=== PATIENT | male | born 1935 | race African-American/Black ===

== ENCOUNTER 2017-02-04 12:23 | Inpatient (IN) | payer MEDICARE, BC ==
[~2017-02-04 12:23] MED LIST: Sodium Chloride 0.9% 1,000 ML BAG ONE; Sodium Chloride 0.9% 100 ML BAG ONE
[2017-02-04 13:26] LABS: #Eosinphils 0.2 thou/uL (0.0-0.7); #Lymphocytes 1.3 thou/uL (1.20-3.40); #Monocytes 0.3 thou/uL (0.11-0.59); #Neutrophils 1.9 thou/uL (1.40-6.50); %Basophils 0.9 % (0.0-1.0); %Lymphocytes 34.8 % (21.0-51.0); %Monocytes 8.1 % (0.0-10.0); %Neutrophils 51.3 % (42.0-75.0); Hemoglobin 11.2 g/dL (14.0-18.0); Mean Corpuscular HGB CONC 31.5 g/dL (32.0-36.0); Mean Corpuscular Hemoglobin 28.6 pg (27.0-31.0); Mean Corpuscular Volume 90.6 fl (80.0-94.0); Mean Platelet Volume 8.3 fL (7.4-10.4); Platelet Count 171 thou/uL (130-400); RBC Distribution Width 13.7 % (11.5-14.5); Red Blood Cell (RBC) Count 3.93 mill/uL (4.70-6.10); White Blood Cell (WBC) Count 3.8 thou/uL (4.8-10.8)
--- NOTE | 2017-02-04 13:33 | RAD ---
SUPINE PORTABLE CHEST ONE VIEW: History: 81-year-old male with altered mental status. Comparison: 02-22-16 FINDINGS: Borderline cardiomegaly. Atherosclerosis of the aorta with ectasia. No confluent pneumonia, overt ed david or pleural effusion. Diffuse bony demineralization. IMPRESSION: Borderline cardiomegaly. Atherosclerosis of the aorta with ectasia. No other acute process. POS: GIANNI
[2017-02-04 13:46] LABS: Acetaminophen Less than 6.0 mcg/mL (10.0-30.0); Alcohol Less than 10 mg/dL (Less than 10); Anion Gap 12 mmol/L (10-20); BUN (Urea Nitrogen) 16 mg/dL (8.4-25.7); CKMB 1.1 ng/mL (0-6.6); Calc. Creatinine Clearance 0 mL/min (70-130); Calcium 8.8 mg/dL (7.8-10.44); Carbon Dioxide 30 mmol/L (23-31); Chloride 107 mmol/L (98-107); Estimated GFR-MDRD Greater than 90; Glucose 81 mg/dL (83-110); Potassium 3.7 mmol/L (3.5-5.1); Salicylate Less than 8.0 mg/dL (15.0-30.0); Sodium 145 mmol/L (136-145)
[2017-02-04 14:00] LABS: Troponin I Less than 0.010 ng/mL (< 0.028)
[2017-02-04] MEDS ORDERED: Dextrose 50% Abboject 50 ML SYRINGE ONE (14:19)
[2017-02-04] MEDS ORDERED: cefTRIAXone\\ROCEPHIN 1 GM VIAL ONE (15:08)
[2017-02-04 15:13] LABS: Bilirubin Negative (Negative); Blood, Urine Negative (Negative); Clarity Cloudy (Clear); Glucose, Urine (Dipstick) Negative (Negative); Leukocyte Negative (Negative); Nitrite Negative (Negative); Protein, Urine (Dipstick) 30 mg/dL (Neg-Trace); pH, Urine 6.5 (5.0-9.0)
[2017-02-04 15:14] LABS: Bacteria/HPF 4+ HPF (None Seen); Crystals/HPF 2+ AMORPH URATES HPF (Negative); RBC/HPF 0-3 HPF (0-3); Squamous Epithelial 0-3 HPF (0-3); WBC/HPF 0-3 HPF (0-3)
[2017-02-04 15:15] LABS: Amphetamine Not Detected (NotDetected); Barbiturates Screen Not Detected (NotDetected); Benzodiazepine Screen Detected (NotDetected); Cocaine Metabolite Screen Not Detected (NotDetected); Methadone Not Detected (NotDetected); Methamphetamine Not Detected (NotDetected); Opiate Screen Not Detected (NotDetected); Oxycodone Screen Not Detected (NotDetected); Phencyclidine (PCP) Not Detected (NotDetected); THC/Cannabinoid Screen Not Detected (NotDetected); Tricyclic Screen Not Detected (NotDetected)
[2017-02-04 15:16] LABS: Medtox Control Line Valid? VALID (VALID)
[2017-02-04 17:07] VITALS: BMI 28.4
[2017-02-04] MEDS ORDERED: Ondansetron HCl/PF 4 MG/2 ML Vial SLOW IVP PRN (18:09)
[2017-02-04] MEDS ORDERED: Acetaminophen 650 MG Suppository PR PRN (18:09)
[2017-02-04] MEDS ORDERED: Enoxaparin Sodium 30 MG/0.3 ML SYRINGE SC SCH ×2 (18:09→20:00)
[2017-02-04] MEDS: Sodium Chloride 0.9% 1,000 ML IV SCH (18:36)
[2017-02-05] MEDS: Sodium Chloride 0.9% 1,000 ML IV SCH ×2 (03:22→13:40)
[2017-02-05 05:37] LABS: #Eosinphils 0.2 thou/uL (0.0-0.7); #Lymphocytes 1.4 thou/uL (1.20-3.40); #Monocytes 0.5 thou/uL (0.11-0.59); #Neutrophils 2.5 thou/uL (1.40-6.50); %Basophils 0.9 % (0.0-1.0); %Eosinophils 4.4 % (0.0-10.0); %Lymphocytes 30.8 % (21.0-51.0); %Monocytes 10.7 % (0.0-10.0); %Neutrophils 53.2 % (42.0-75.0); Hemoglobin 10.5 g/dL (14.0-18.0); Mean Corpuscular HGB CONC 32.4 g/dL (32.0-36.0); Mean Corpuscular Hemoglobin 28.9 pg (27.0-31.0); Mean Corpuscular Volume 89.4 fl (80.0-94.0); Platelet Count 175 thou/uL (130-400); RBC Distribution Width 13.7 % (11.5-14.5); Red Blood Cell (RBC) Count 3.63 mill/uL (4.70-6.10); White Blood Cell (WBC) Count 4.6 thou/uL (4.8-10.8)
[2017-02-05 05:46] LABS: Anion Gap 10 mmol/L (10-20); BUN (Urea Nitrogen) 14 mg/dL (8.4-25.7); Calc. Creatinine Clearance 75 mL/min (70-130); Calcium 8.3 mg/dL (7.8-10.44); Carbon Dioxide 28 mmol/L (23-31); Chloride 111 mmol/L (98-107); Estimated GFR-MDRD 90; Glucose 73 mg/dL (83-110)
[2017-02-05 06:01] LABS: Potassium 3.5 mmol/L (3.5-5.1); Sodium 145 mmol/L (136-145)
[2017-02-05] MEDS: levETIRAcetam 500 MG TAB PO SCH ×3 (08:46→17:17)
[2017-02-05] MEDS: Ferrous Sulfate 325 MG TAB PO SCH ×2 (08:46→11:37)
[2017-02-05] MEDS: Enoxaparin Sodium 30 MG/0.3 ML SYRINGE SC SCH ×2 (08:47→09:39)
[2017-02-05] MEDS: Pantoprazole 40 MG VIAL IVP SCH ×2 (09:06→09:39)
[2017-02-05] MEDS: Amlodipine 5 MG TAB PO SCH ×2 (09:07→11:40)
--- NOTE | 2017-02-05 10:11 | HP ---
REASON FOR ADMISSION: Altered mental status. HISTORY OF PRESENT ILLNESS: Mr. Nicholson is an 81-year-old male with multiple chronic medical conditions including Alzheimer dementia with behavioral disturbances and schizoaffective disorder, disruptive mood dysregulation disorder, anxiety, chronic insomnia and elopement risk. The patient was recently admitted to [facility] as the patient has been having increased behavioral disturbances and now with elopement risk, in his previous long-term facility in [place]. The patient remains confused, walking around on his own with intermittent anxiety and agitation, but overall behaviors is well controlled in the secure unit of [facility]. The day prior to admission, the patient was noted to be generally weak, as stays in bed all the time with no significant symptoms reported. He was observed in the skilled nursing facility. Overnight course was unremarkable. On the day of admission, the patient was noted to be very lethargic, almost unresponsive, thus, he was transferred to [facility] for further evaluation. In the ER, the patient was reported to be very lethargic with initial vital signs of 158/88, pulse 55, respirations 13, temperature 95.3 rectal, O2 saturation 98% at room air. Further exams, the patient's laboratory showed WBC 3.8, hemoglobin 11.2, hematocrit 35.6 with significant bacteriuria without pyuria. Toxicology showed benzodiazepines high with less than 10 plasma alcohol , less than 6 acetaminophen and less than 8 salicylates. The patient was admitted for possible urosepsis. He was started on empiric IV antibiotic treatment including vancomycin IV, ceftriaxone IV. He was also started on aggressive IV hydration infusion. His temperature increased to 96.7 with Marcia Hugger prior to transfer to the medical floor . The patient was subsequently admitted to [facility] for inpatient management of probable urosepsis. There was also a suspected oversedation form his multiple psych medications . per skilled nursing staff.Patient had not been taking his psych medications consistently from the other intermediate facility where he was from. He has been taking his medications lately from [facility]. On examination on the floor, the patient was seen lying comfortably in bed, asleep, easily arousable with verbal stimulus and tactile stimulus. He would not open his eyes, but he answered simple questions with some appropriateness. He denies any pain or any concerns at this point. He does not want to eat at this point as well. 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 PAST SURGICAL HISTORY: Unknown. FAMILY HISTORY: Noncontributory. SOCIAL HISTORY: Per records, patient is nonsmoker, no illicit drug use. No alcohol use. ALLERGIES: LISINOPRIL and PENICILLIN. PREVIOUS HOSPITALIZATION: 02/22/2016 to 02/27/2016 - Altered mental status with pneumonia in [facility] under Dr. Salomon. PREVIOUS PRIMARY CARE PHYSICIAN: Dr. Salomon. REVIEW OF SYSTEMS: Limited secondary to dementia. MEDICATIONS AT HOME: 1. Aspirin 81 mg p.o. daily. 2. Depakote sprinkles 125 mg 4 capsules b.i.d. 3. Ferrous sulfate 325 mg b.i.d. 4. Keppra 250 mg p.o. daily. 5. Lipitor 20 mg p.o. at bedtime. 6. Norvasc 5 mg p.o. daily. 7. Protonix 40 mg p.o. b.i.d. 8. Temazepam 15 mg p.o. at bedtime. 9. Risperdal Consta 25 mg suspension 1 mL intramuscular monthly. 10. Toprol-XL 50 mg daily. 11. Trazodone 100 mg p.o. at bedtime. 12. Clonidine 0.1 mg q.6h. p.r.n. for elevated blood pressure. 13. Acetaminophen 325 mg 2 capsules q.4h. p.r.n. PHYSICAL EXAMINATION: VITAL SIGNS: Blood pressure 159/77, temperature 97.2, pulse 59, respirations 20 , O2 sats 97% at room air, weight 198 pounds, height 5 feet 10. GENERAL: The patient is lying comfortably in bed with eyes closed. He answers simple questions. He knows his name only. Limited conversation. Comfortably resting in bed, no signs of agony, not in distress. HEENT: Normocephalic, atraumatic. PERRL, EOM - not assessed as patient was uncooperative. Nonicteric sclerae. Oral mucosa is dry, Multiple absent teeth. NECK: Supple. No LAD, no JVD, no bruit. CHEST: Normal excursion, clear to auscultation bilaterally. CARDIAC: Mildly bradycardic. Normal S1 and S2. No murmurs. ABDOMEN: Flat, soft, normoactive bowel sounds, nondistended, nontender. No rebound, no guarding. Negative CVA tenderness bilaterally. EXTREMITIES: No edema, no cyanosis. Moves all extremities symmetrically. NEUROLOGIC: Nonfocal. No tremors, no tics. Spontaneous speech. No motor deficits, neurological deficits. The rest of the neuro exam was not obtained secondary to current cognitive status. SKIN: Intact. No rashes, no lesions. TESTS: Chest x-ray, borderline cardiomegaly, atherosclerosis of the aorta with ectasia. No other acute process. EKG as read by ER physician from the ER showed normal sinus rhythm with 54 beats per minute, no ectopics, no previous EKG available for comparison, conduction with first degree AV block, T waves normal, axis left anterior descending. ASSESSMENT AND PLAN: 1. Altered mental status, multifactorial. 2. Probable urosepsis. 3. Probable drug oversedation with psych medications. 4. Alzheimer's dementia with behavioral disorders. 5. Hypertension. 6. Schizoaffective disorder. 7. Disrupted dysregulation disorder. 8. Anxiety. 9. Anemia. 10. Chronic insomnia. 11. Dyslipidemia. CODE STATUS: Do not resuscitate. PLAN: 1. The patient is an 81-year-old male with multiple chronic medical conditions, a long-term resident of skilled nursing with both advanced dementia and psych issues. He is on multiple psych medications.He was admitted for altered mental status,unknown cause. 2. We will continue empiric IV antibiotic treatment pending cultures. 3. We will continue aggressive IV hydration as tolerated. Serial lab works. 4. We will hold off all psych medications at this point. We will continue home medications as modified per list. 5. NPO, until fully awake. 6. Gastrointestinal prophylaxis with PPI. DVT prophylaxis with Lovenox. 7.. Further recommendations depending on the hospital course. 7. Code status: The patient has outpatient DNR, which was confirmed and signed by the [facility]. No family is present at this point. DEMARCO
[2017-02-05 10:45] LABS: Valproic Acid (Depakene) 30.8 ug/mL (50.0-100.0)
[2017-02-05] MEDS: cefTRIAXone\\ROCEPHIN 1 GM in Sodium Chloride 0.9% 100 ML IVPB SCH (14:48)
[2017-02-05] MEDS: Dextrose 5 %-0.45 % NaCl 1,000 ML IV SCH (17:32)
[2017-02-05] MEDS ORDERED: traZODone HCl 50 MG TAB PO PRN (21:22)
[2017-02-05] MEDS ORDERED: Amlodipine 5 MG TAB PO SCH (21:30)
[2017-02-05] MEDS: ALPRAZolam 0.5 MG TAB PO PRN (21:35)
[2017-02-05] MEDS: Atorvastatin Calcium 10 MG TAB PO SCH (21:35)
[2017-02-05] MEDS: Nystatin Ointment 15 GM TUBE TOP SCH (21:36)
[2017-02-06] MEDS: Ferrous Sulfate 325 MG TAB PO SCH ×3 (00:46→17:12)
[2017-02-06] MEDS: Dextrose 5 %-0.45 % NaCl 1,000 ML IV SCH ×2 (00:58→13:22)
[2017-02-06] MEDS: Enoxaparin Sodium 30 MG/0.3 ML SYRINGE SC SCH (08:29)
[2017-02-06] MEDS: Amlodipine 5 MG TAB PO SCH (08:29)
[2017-02-06] MEDS: levETIRAcetam 500 MG TAB PO SCH (08:30)
[2017-02-06] MEDS: Pantoprazole 40 MG VIAL IVP SCH (08:31)
[2017-02-06] MEDS: Nystatin Ointment 15 GM TUBE TOP SCH ×2 (09:00→21:17)
[2017-02-06] MEDS: cefTRIAXone\\ROCEPHIN 1 GM in Sodium Chloride 0.9% 100 ML IVPB SCH (14:15)
[2017-02-06] MEDS: ALPRAZolam 0.5 MG TAB PO PRN (15:13)
[2017-02-06] MEDS: Atorvastatin Calcium 10 MG TAB PO SCH (21:18)
[2017-02-07] MEDS: Enoxaparin Sodium 30 MG/0.3 ML SYRINGE SC SCH (07:54)
[2017-02-07] MEDS: Pantoprazole 40 MG VIAL IVP SCH (07:55)
[2017-02-07] MEDS: levETIRAcetam 500 MG TAB PO SCH (08:00)
[2017-02-07] MEDS: Ferrous Sulfate 325 MG TAB PO SCH (08:00)
[2017-02-07] MEDS: Amlodipine 5 MG TAB PO SCH (08:01)
[2017-02-07 11:56] VITALS: BP 139/61; TEMP 99.3
[2017-02-07] MEDS: Nystatin Ointment 15 GM TUBE TOP SCH (13:07)
[2017-02-07] MEDS: ALPRAZolam 0.5 MG TAB PO PRN (13:08)
--- NOTE | 2017-02-16 22:16 | PQF ---
Clayton Nicholson IMELDA CHAN MD [id number] CLINICAL DOCUMENTATION CLARIFICATION FORM: POST DISCHARGE Addendum to original discharge summary date: 02/12/17 Late entry note date: 02/17/17 DATE: 02/16/17 ATTN: Please exercise your independent, professional judgment in responding to the clarification form. Clinical indicators are provided on the bottom of this form for your review Urosepsis is documented throughout the chart. Please clarify the final diagnosis after study that this patient was admitted for: Please check appropriate box(s): [ ] UTI please specify if due to or related to (as applicable): [ ] Indwelling catheter [ ] Self-catheterization [ ] Suprapubic catheter [/ ] Unable to determine etiology UTI Site: [ ] Kidney [ ] Ureter [ ] Bladder [ ] Urethra [/] Unable to determine Specify Organism (if known):_Aerococcus urinae__ [ ] Unknown organism [ ] Sepsis [ ] Contaminated urine specimen without UTI [ ] Other diagnosis [ ] Unable to determine In addition, please specify: Present on Admission (POA): [X ] Yes [ ] No [ ] Unable to determine For continuity of documentation, please document condition throughout progress notes and discharge summary. Thank You. CLINICAL INDICATORS - SIGNS / SYMPTOMS / LABS Positive urinalysis- Hematuria Fever-/ Documentation: UTI- RISK FACTORS History of neurogenic bladder History self-cath/indwelling catheter Immunocompromised Debility / [facility] resident - TREATMENT: Antibiotics: MTDD
== END 2017-02-07 13:52 | DRG 690 ==
LOC: MADERS 12:23 → MADMS 15:43
PROVIDERS: ADMIT Family Medicine; ATTEND Family Medicine
DX: N39.0 Urinary tract infection, site not specified (principal); G30.9 Alzheimer's disease, unspecified; F02.81 Dementia in other diseases classified elsewhere, unspecified severity, with behavioral disturbance; B96.89 Other specified bacterial agents as the cause of diseases classified elsewhere; R41.82 Altered mental status, unspecified; D64.9 Anemia, unspecified; F25.9 Schizoaffective disorder, unspecified; F41.9 Anxiety disorder, unspecified; G47.00 Insomnia, unspecified; I10 Essential (primary) hypertension; E78.5 Hyperlipidemia, unspecified; K27.9 Peptic ulcer, site unspecified, unspecified as acute or chronic, without hemorrhage or perforation; Z66 Do not resuscitate; Z86.73 Personal history of transient ischemic attack (TIA), and cerebral infarction without residual deficits; T50.995A Adverse effect of other drugs, medicaments and biological substances, initial encounter
CPT/HCPCS: 36415; 36416; 71010; 80048; 80164; 80177; 80306; 80307; 81003; 81015; 82553; 83605; 84484; 85025; 87040; 87077; 87086; 93005; 96361; 96365; 96375; A4216; C9113; J0696; J1650; J3370; J7050

== ENCOUNTER 2017-02-07 05:52 | Inpatient (IN) | payer MEDICARE, BC ==
[2017-02-07] MEDS ORDERED: cloNIDine 0.1 MG TAB PO PRN (15:31)
[2017-02-07] MEDS ORDERED: ALPRAZolam 0.5 MG TAB PO PRN (15:31)
[2017-02-07] MEDS ORDERED: Acetaminophen 325 MG TAB PO PRN (15:31)
[2017-02-07] MEDS: cefTRIAXone\\ROCEPHIN 1 GM in Sodium Chloride 0.9% 100 ML IVPB SCH (16:17)
[2017-02-07] MEDS: Ferrous Sulfate 325 MG TAB PO SCH (16:18)
[2017-02-07] MEDS ORDERED: FLU VACC TS2017-18 (>65YR) 0.5 ML SYRINGE IM ONE (21:00)
[2017-02-07] MEDS ORDERED: traZODone HCl 50 MG TAB PO PRN (21:00)
[2017-02-07] MEDS: Atorvastatin Calcium 10 MG TAB PO SCH (21:12)
[2017-02-07] MEDS: Nystatin Ointment 15 GM TUBE TOP SCH (21:14)
[2017-02-08] MEDS: levETIRAcetam 500 MG TAB PO SCH (08:29)
[2017-02-08] MEDS: Ferrous Sulfate 325 MG TAB PO SCH ×2 (08:29→17:21)
[2017-02-08] MEDS: Amlodipine 5 MG TAB PO SCH (08:30)
[2017-02-08] MEDS: Enoxaparin Sodium 30 MG/0.3 ML SYRINGE SC SCH (08:30)
[2017-02-08] MEDS: Nystatin Ointment 15 GM TUBE TOP SCH ×2 (08:31→21:56)
[2017-02-08] MEDS: cefTRIAXone\\ROCEPHIN 1 GM in Sodium Chloride 0.9% 100 ML IVPB SCH (17:02)
[2017-02-08] MEDS: Atorvastatin Calcium 10 MG TAB PO SCH (23:23)
[2017-02-09 05:43] LABS: #Basophils 0.1 thou/uL (0.0-0.2); #Eosinphils 0.2 thou/uL (0.0-0.7); #Lymphocytes 1.9 thou/uL (1.20-3.40); #Monocytes 0.7 thou/uL (0.11-0.59); #Neutrophils 2.1 thou/uL (1.40-6.50); %Basophils 1.3 % (0.0-1.0); %Eosinophils 3.6 % (0.0-10.0); %Lymphocytes 38.5 % (21.0-51.0); %Monocytes 14.9 % (0.0-10.0); %Neutrophils 41.7 % (42.0-75.0); Mean Corpuscular Hemoglobin 28.8 pg (27.0-31.0); Mean Corpuscular Volume 90.2 fl (80.0-94.0); Platelet Count 167 thou/uL (130-400); RBC Distribution Width 13.8 % (11.5-14.5); Red Blood Cell (RBC) Count 3.82 mill/uL (4.70-6.10); White Blood Cell (WBC) Count 4.9 thou/uL (4.8-10.8)
[2017-02-09 05:50] VITALS: BMI 27.0
[2017-02-09 06:16] LABS: ALT (SGPT) 11 U/L (8-55); AST (SGOT) 12 U/L (5-34); Albumin 2.9 g/dL (3.4-4.8); Alkaline Phosphatase 63 U/L (40-150); Anion Gap 11 mmol/L (10-20); BUN (Urea Nitrogen) 26 mg/dL (8.4-25.7); Bilirubin, Total 0.4 mg/dL (0.2-1.2); Calc. Creatinine Clearance 43 mL/min (70-130); Carbon Dioxide 27 mmol/L (23-31); Chloride 111 mmol/L (98-107); Estimated GFR-MDRD 50; Globulin 3.1 g/dL (2.4-3.5); Glucose 73 mg/dL (83-110); Sodium 146 mmol/L (136-145)
[2017-02-09 06:18] LABS: Potassium 3.1 mmol/L (3.5-5.1)
[2017-02-09] MEDS: Amlodipine 5 MG TAB PO SCH (08:14)
[2017-02-09] MEDS: Ferrous Sulfate 325 MG TAB PO SCH ×2 (08:14→16:13)
[2017-02-09] MEDS: levETIRAcetam 500 MG TAB PO SCH (08:14)
[2017-02-09] MEDS: Nystatin Ointment 15 GM TUBE TOP SCH ×2 (08:15→21:39)
[2017-02-09] MEDS: Enoxaparin Sodium 30 MG/0.3 ML SYRINGE SC SCH (08:15)
[2017-02-09] MEDS: D5 1/2 NS w/20 mEq KCL 1,000 ML IV SCH ×2 (08:15→17:46)
[2017-02-09] MEDS: cefTRIAXone\\ROCEPHIN 1 GM in Sodium Chloride 0.9% 100 ML IVPB SCH (16:09)
[2017-02-09] MEDS ORDERED: diphenhydrAMINE 25 MG CAP PO PRN (18:18)
[2017-02-09] MEDS: Atorvastatin Calcium 10 MG TAB PO SCH (21:38)
[2017-02-09] MEDS: Triamcinolone 0.1% Cream 15 GM TUBE TOP SCH (21:39)
[2017-02-10] MEDS ORDERED: Bisacodyl 10 MG SUPP PR PRN (06:50)
[2017-02-10] MEDS ORDERED: Bisacodyl 10 MG SUPP PR SCH (07:00)
[2017-02-10] MEDS: Amlodipine 5 MG TAB PO SCH (08:26)
[2017-02-10] MEDS: Ferrous Sulfate 325 MG TAB PO SCH ×3 (08:27→16:24)
[2017-02-10] MEDS: levETIRAcetam 500 MG TAB PO SCH (08:27)
[2017-02-10] MEDS: Polyethylene Glycol 3350 17 GM Packet PO SCH (08:27)
[2017-02-10] MEDS: Triamcinolone 0.1% Cream 15 GM TUBE TOP SCH ×3 (08:35→21:32)
[2017-02-10] MEDS: Nystatin Ointment 15 GM TUBE TOP SCH ×2 (08:36→21:33)
[2017-02-10] MEDS: Enoxaparin Sodium 30 MG/0.3 ML SYRINGE SC SCH (08:39)
[2017-02-10] MEDS: cefTRIAXone\\ROCEPHIN 1 GM in Sodium Chloride 0.9% 100 ML IVPB SCH (15:42)
[2017-02-10] MEDS: Atorvastatin Calcium 10 MG TAB PO SCH (21:31)
[2017-02-11] MEDS: Ferrous Sulfate 325 MG TAB PO SCH ×2 (08:35→17:00)
[2017-02-11] MEDS: Amlodipine 5 MG TAB PO SCH (08:36)
[2017-02-11] MEDS: Enoxaparin Sodium 30 MG/0.3 ML SYRINGE SC SCH (08:37)
[2017-02-11] MEDS: levETIRAcetam 500 MG TAB PO SCH (08:37)
[2017-02-11] MEDS: Polyethylene Glycol 3350 17 GM Packet PO SCH (08:38)
[2017-02-11] MEDS: Triamcinolone 0.1% Cream 15 GM TUBE TOP SCH ×3 (08:39→20:47)
[2017-02-11] MEDS: Nystatin Ointment 15 GM TUBE TOP SCH ×2 (11:40→21:03)
[2017-02-11] MEDS: cefTRIAXone\\ROCEPHIN 1 GM in Sodium Chloride 0.9% 100 ML IVPB SCH (15:40)
[2017-02-11] MEDS: Atorvastatin Calcium 10 MG TAB PO SCH (20:47)
[2017-02-12] MEDS: Amlodipine 5 MG TAB PO SCH (08:17)
[2017-02-12] MEDS: Enoxaparin Sodium 30 MG/0.3 ML SYRINGE SC SCH (08:18)
[2017-02-12] MEDS: levETIRAcetam 500 MG TAB PO SCH (08:19)
[2017-02-12 08:20] VITALS: BP 142/87; TEMP 98.2
[2017-02-12] MEDS: Ferrous Sulfate 325 MG TAB PO SCH (08:20)
[2017-02-12] MEDS: Triamcinolone 0.1% Cream 15 GM TUBE TOP SCH (08:20)
[2017-02-12] MEDS: Nystatin Ointment 15 GM TUBE TOP SCH (08:21)
[2017-02-12] MEDS: Polyethylene Glycol 3350 17 GM Packet PO SCH (08:21)
--- NOTE | 2017-02-12 12:22 | DIS ---
DATE OF ADMISSION: 02/04/2017 DATE OF DISCHARGE: 02/07/2017 to [facility]. DATE OF DISCHARGE: 02/12/2017 to [facility], REASON FOR ADMISSION: Altered mental status. ATTENDING: Dr. Jones. OTHER PRIMARY CARE PHYSICIAN: Dr. Salomon. FINAL DIAGNOSES: 1. Urosepsis. 2. Alzheimer's dementia, late stage. 3. Dementia with behavioral disturbances. 4. Hypertension. 5. Schizoaffective disorder. 6. Mood disruptive dysregulation disorder. 7. Anxiety. 8. Chronic insomnia. SECONDARY DIAGNOSES: 1. Hypertension. 2. Chronic anemia. 3. Dyslipidemia. DISPOSITION: [facility] for Palliative care/Hospice care. CONDITION ON DISCHARGE: Guarded. MEDICATIONS: 1. Alprazolam 0.5 mg q.4 hours p.r.n. for anxiety and agitation. 2. Amlodipine 5 mg p.o. daily. 3. Aspirin 81 mg p.o. daily. 4. Ferrous sulfate 325 mg p.o. b.i.d. 5. Metoprolol 25 mg p.o. daily. 6. Nystatin topical b.i.d. to affected area. 7. Polyethylene glycol 17 grams p.o. daily. 8. Clonidine 0.1 mg p.o. q.6 hours p.r.n. for systolic blood pressure if greater than or equal to 180 and/or diastolic blood pressure greater than or equal to 100. 9. Trazodone 50 mg p.o. at bedtime p.r.n. for insomnia. DIET: Regular as tolerated/lesser feeding. ACTIVITIES: Complete bed rest. RISK: Fall risk precautions. OTHER INSTRUCTIONS: 1. To continue current medications as per list. To discontinue other medications from home medication list previously ordered. 2. Refer to hospice once in [facility]. HISTORY OF PRESENT ILLNESS AND HOSPITAL COURSE: Mr. Nicholson is an 81-year-old -[place] male with significant history of Alzheimer's dementia associated with behavioral disturbances, schizoaffective disorder, mood disruptive dysregulation disorder, anxiety, chronic insomnia and elopement risk. The patient was recently admitted to [facility] from [facility] due to increased behavioral disturbances and became an elopement risk in the previous long-term facility. He also has a history of CVA with some unsteadiness in his gait giving him a history of multiple falls without significant injuries. The patient was recently admitted to [facility] secondary to acute onset of altered mental status. This was deemed multifactorial. There was a suspicion of over sedation on his multiple psych medications. Patient was reported back from the previous facility not he has not been taking his medications consistently. Now staff reports he has been taking his medications regularly since he has been admitted to [facility] facility. At the time of admission, the patient was found unresponsive with hypotension. On initial evaluation from the ER, he was found to have significant pyuria, hypotension and hypothermia. He was admitted and empirically treated for urosepsis. He received Rocephin for IV antibiotic therapy. His medications were withheld for the first 48 hours as the patient has been unresponsive, unable to take his medications nor unable to eat. His urine culture came back positive for Aerococcus urinae, blood culture came back negative. The patient had completed his IV antibiotic therapy for 7 days in [facility]. During this time, the patient's psych medications were adjusted appropriately. Over the hospital course, the patient was noted to be very confused for the most part. When he started coming out of it, he has started eating some. He has bad days and good days during the hospital course. There were days that the patient would not sleep followed by continuously sleeping the whole 24 to 36 hours without eating. There was an episode that the patient did not eat for the whole 24 hours and was just sleeping. When his lab work was obtained, lab results revealed significant hypokalemia and dehydration, thus IV hydration was given. P His vitals remained stable over the course. There were no significant neurologic deficits noted. CT scan was ordered at one point due to recurrence of intermittent altered mental status/ unresponsive, affecting his overall nutritional status. However, when he was ready to get the CT scan, the patient became fully awake and alert then started eating back. Again there was no neurologic deficits elicited,thus CT was cancelled. There were no significant ticks, tremors or seizures reported. The Keppra and his home medication was continued during his hospital stay due to tardive dyskinesia, which was the original reason for the medication from previous facility. There were days that the patient would not take the medicines thus the Keppra level was not deemed to be adequate. There was no significant movement disorders noted thereafter, so Keppra was discontinued. Overall, behavior of the patient comes and goes. He still has intermittent agitation and anxiety associated with lethargic episodes. Patient was also tried on therapy for gait training and strengthening exercises. The therapy was subsequently cancelled secondary to inability to follow instructions. Prior to discharge, I had a lengthy discussion with his Clayton Nicholson, who serves as the surrogate decision maker for the patient. I discussed the patient's findings, cognitive status and end-stage Alzheimer's disease associated with behaviors. reports that he has been like this for several years and that is why, he ended up in a longterm facility, because she could not take care of him at home. reports that gradually over the years, the patient's behavior and overall cognitive status had worsened and become difficult to manage even in the last longterm facility that he had been too. We discussed alternatives for feedings including PEG tube placement. declines further aggressive interventions at this point. She was also aware that the patient had pulled out his IV fluids and site 3 times during this hospitalization, thus we were both in agreement that he would not a good candidate for PEG placement secondary to his confusion. As risks may outweigh the benefits. After a lengthy discussion with the , the reports that he will stay in [facility] for comfort care only. does not want to give more discomfort to the patient by getting in and out of the ER or the hospital every time he would have this episodes of altered mental status any longer. decided for palliative care with hospice in the [facility]. prefers [facility]. On 02/12/2017, the patient was transferred to [facility]. CODE STATUS: DONOT RESUSCITATE. confirms the patient's DNR status and was agreeable with it. PHYSICAL EXAMINAITON: VITAL SIGNS: Prior to discharge, blood pressure 142/87, temperature 98.2, pulse 68, respirations 16, O2 saturation 95%, weight 188 pounds and 8 ounces, height 5 feet 10 inches. GENERAL: The patient is awake, alert, very confused, disoriented, able to eat breakfast prior to discharge. He needs to be fed, needs constant orientation and reminders. He remains a fall risk. HEENT: Normocephalic, atraumatic. PERRL, intact EOM. Anicteric sclerae. Oral mucosa is moist. No facial asymmetry or swelling. NECK: Supple. No LAD. CHEST: Normal excursion, clear to auscultation bilaterally. CARDIAC: Regular rate and rhythm. Normal S1 and S2. No murmurs. ABDOMEN: Flat, soft, normoactive bowel sounds, nondistended, nontender. SKIN: Intact, warm and dry. Fading rashes, inframammary region. EXTREMITIES: Moves all extremities symmetrically. No edema, no cyanosis. NEUROLOGIC: Nonfocal. Deep tendon reflexes 2+. Unsteady gait. MTDD
--- NOTE | 2017-02-17 14:25 | PQF ---
NICKIE HERNÁNDEZ IMELDA CHAN MD [id number] CLINICAL DOCUMENTATION CLARIFICATION FORM: POST DISCHARGE Addendum to original discharge summary date: ____ Late entry note date: __ DATE: 02/17/2017 ATTN: DR. FREGOSO Please exercise your independent, professional judgment in responding to the clarification form. Clinical indicators are provided on the bottom of this form for your review Please check appropriate box(s): Conflicting documentation was noted in the Medical Record, please clarify if patient is being treated/monitored for: [ ] (diagnosis #1) [ ] (diagnosis #2) [ ] Other diagnosis [ ] Unable to determine In addition, please specify: Present on Admission (POA): [ ] Yes [ ] No [ ] Unable to determine For continuity of documentation, please document condition throughout progress notes and discharge summary. Thank You. CLINICAL INDICATORS - SIGNS / SYMPTOMS/ LABS H&P - UROSEPSIS, HYPOTENSION, HPOTHERMIA, PYURIA PN - UROSEPSIS DS - UROSEPSIS RISK FACTORS POSITIVE URINE AEROCOCCUS NEGATIVE BLOOD CULTURE ALZHEIMER DEMENTIA HYPOTENSION TREATMENT IV ANTIBIOTIC ROCEPHIN (This form is maintained as a part of the permanent medical record) 2014 [employer] All Rights Reserved Martha Cadena, JEREMIAS, [email or web address] [phone] [email or web address]
== END 2017-02-12 11:25 | disposition hospice, inpatient (51) | DRG 690 ==
LOC: MADMS 14:31
PROVIDERS: ADMIT Family Medicine; ATTEND Family Medicine
DX: N39.0 Urinary tract infection, site not specified (principal); I95.9 Hypotension, unspecified; F02.81 Dementia in other diseases classified elsewhere, unspecified severity, with behavioral disturbance; D64.9 Anemia, unspecified; G30.1 Alzheimer's disease with late onset; E86.0 Dehydration; F34.81 Disruptive mood dysregulation disorder; R53.1 Weakness; Z66 Do not resuscitate; Z51.5 Encounter for palliative care; I10 Essential (primary) hypertension; F25.9 Schizoaffective disorder, unspecified; F41.9 Anxiety disorder, unspecified; E78.5 Hyperlipidemia, unspecified; Z86.73 Personal history of transient ischemic attack (TIA), and cerebral infarction without residual deficits; Z91.81 History of falling; E87.6 Hypokalemia
CPT/HCPCS: 36415; 36416; 80053; 85025; A4216; G8978-GP-CN; G8979-GP-CK; J0696; J1650; J7050